=== PATIENT | female | born 1955 | race Caucasian/White ===

== ENCOUNTER 2022-02-25 06:29 | Day surgery (SDC) | payer MEDICARE ==
[~2022-02-25] VITALS: Ht 167.6 cm; Wt 78.8 kg
[2022-02-25] VITALS (19 sets, daily range): BP systolic 97–136; BP diastolic 53–79
[2022-02-25] MEDS ORDERED: LEVO50TA8 PO (06:55)
[2022-02-25] MEDS ORDERED: LIDOcaine 1%/PF 5ML 10 MG/ML VIAL ONE (08:56)
[2022-02-25] MEDS ORDERED: sodium chloride 0.45% 1,000 ML IV SCH (09:15)
[2022-02-25] MEDS ORDERED: midazolam 1 mg/ML 2ml injection ONE (09:20)
[2022-02-25] MEDS ORDERED: fentaNYL/PF 50MCG/1 ML 2ML syringe ONE (09:20)
[2022-02-25] MEDS ORDERED: normal saline 1000ml 1,000 ML IV PRN (09:45)
== END 2022-02-25 14:03 | disposition home or self-care (01) ==
LOC: SSTAY O 06:29
PROVIDERS: ATTEND Radiology Diagnostic Radiology
DX: R91.8 Other nonspecific abnormal finding of lung field (principal); J98.4 Other disorders of lung; J84.10 Pulmonary fibrosis, unspecified; G43.B0 Ophthalmoplegic migraine, not intractable; Z90.710 Acquired absence of both cervix and uterus; Z98.890 Other specified postprocedural states; Z85.42 Personal history of malignant neoplasm of other parts of uterus; Z83.3 Family history of diabetes mellitus; Z82.49 Family history of ischemic heart disease and other diseases of the circulatory system; Z80.41 Family history of malignant neoplasm of ovary; Z80.3 Family history of malignant neoplasm of breast
CPT/HCPCS: 32408; 71045; 88305; 99152; 99153; J2250; J3010; J3490; 77012

== ENCOUNTER 2022-10-26 08:30 | Day surgery (SDC) | payer MEDICARE ==
[2022-10-26] VITALS (17 sets, daily range): BP systolic 95–121; BP diastolic 46–68
[~2022-10-26] VITALS: Ht 167.6 cm; Wt 75.3 kg
[~2022-10-26 08:30] MED LIST: ACET-3209 PO; LEVO50TA8 PO
[2022-10-26] MEDS ORDERED: normal saline 1000ml 1,000 ML IV PRN (09:15)
[2022-10-26] MEDS ORDERED: albumin 25% 100mL bottle x 1 IV PRN (09:15)
[2022-10-26 09:25] LABS: BASOPHILS # (AUTO) 0.1 X10'3 (0-0.2); BASOPHILS % (AUTO) 1.1 % (0-1); EOSINOPHILS # (AUTO) 0.3 X10'3 (0-0.9); HEMATOCRIT 43.3 % (35.0-45.0); HEMOGLOBIN 14.5 g/dl (12.0-16.0); LYMPHOCYTES # (AUTO) 1.4 X10'3 (1.1-4.8); MEAN CORPUSCULAR HEMOGLOBIN 31.7 PG (27.0-31.0); MEAN CORPUSCULAR HGB CONC 33.4 g/dL (33.0-36.5); MEAN CORPUSCULAR VOLUME 94.8 FL (78-98); MEAN PLATELET VOLUME 8.3 FL (7.4-10.4); MONOCYTES # (AUTO) 0.7 X10'3 (0-0.9); MONOCYTES % (AUTO) 8.7 % (2-12); NEUTROPHILS % (AUTO) 67.2 % (42-75); PLATELET COUNT 296 X10'3 (140-440); RED BLOOD COUNT 4.57 X10'6 (4.20-5.60); RED CELL DISTRIBUTION WIDTH 15.3 % (11.5-14.5); WHITE BLOOD COUNT 7.5 X10'3 (4.5-11.0)
[2022-10-26] MEDS ORDERED: fentaNYL/PF 50MCG/1 ML 2ML syringe ONE (09:59)
[2022-10-26] MEDS ORDERED: midazolam 1 mg/ML 2ml injection ONE (09:59)
== END 2022-10-26 13:50 | disposition home or self-care (01) ==
LOC: SSTAY O 08:30
PROVIDERS: ATTEND Radiology Diagnostic Radiology
DX: R91.8 Other nonspecific abnormal finding of lung field (principal); C34.12 Malignant neoplasm of upper lobe, left bronchus or lung; Z85.42 Personal history of malignant neoplasm of other parts of uterus; Z79.899 Other long term (current) drug therapy; Z79.01 Long term (current) use of anticoagulants
CPT/HCPCS: 32408; 36415; 71045; 85025; 85610; J2250; J3010; J7030; 77012; 88305; 88341; 88342; 88360; 99152; 99153; A4615

== ENCOUNTER 2023-09-15 07:40 | Day surgery (SDC) | payer MEDICARE ==
[~2023-09-15] VITALS: Ht 167.6 cm; Wt 74.2 kg
[~2023-09-15 07:40] MED LIST changes: -LEVO50TA8 PO
[2023-09-15] MEDS ORDERED: normal saline 1000ml 1,000 ML IV PRN (08:00)
[2023-09-15] MEDS ORDERED: LEVO75TA7 PO (08:05)
[2023-09-15] MEDS ORDERED: heparin sodium, porcine/PF 100unit/ml 5ML syringe ONE (09:08)
== END 2023-09-15 09:20 | disposition home or self-care (01) ==
LOC: SSTAY O 07:40
PROVIDERS: ATTEND Radiology Vascular & Interventional Radiology
DX: T82.848A Pain due to vascular prosthetic devices, implants and grafts, initial encounter (principal); Z53.8 Procedure and treatment not carried out for other reasons; C54.1 Malignant neoplasm of endometrium; E03.9 Hypothyroidism, unspecified; G62.9 Polyneuropathy, unspecified; Z79.899 Other long term (current) drug therapy; Y83.8 Other surgical procedures as the cause of abnormal reaction of the patient, or of later complication, without mention of misadventure at the time of the procedure; Y92.89 Other specified places as the place of occurrence of the external cause
CPT/HCPCS: A6258; J1642